=== PATIENT | male | born 1975 | race Caucasian/White ===

== ENCOUNTER → 2016-12-07 | Outpatient (CLI) | payer SELFPAY ==
--- NOTE | 2016-12-07 15:43 | CT ---
HISTORY: Screening Cardiac calcium scoring. Technique: Multiple axial images of the chest were obtained on a [address] from the aortic arch to the base of the heart with noncontrast prospective gating. AEC was utilized. Findings: A total calcium score of 53 is observed. The patient is between the 90 and 100 percentile for age a nd sex with definite, at least mild, atherosclerotic plaque present and mild or minimal Coronary roe rowings likely. Centrilobular and paraseptal emphysema. There is a pleural-based semi-solid 11 mm li ngular pulmonary nodule for which follow up is recommended. IMPRESSION: 1. At least mild atherosclerotic plaque. 2. Lingular pulmonary nodule in the setting of emphysema for which [address] is recommend ed based on Fleischner society criteria. Reported By:
== END ==
LOC: RAD 14:16
PROVIDERS: ATTEND Nurse Practitioner Family
DX: Z13.6 Encounter for screening for cardiovascular disorders (principal)